=== PATIENT | female | born 1980 | race Caucasian/White ===

== ENCOUNTER 2021-07-08 19:31 | Emergency (ER) | payer BC, OTHER, SELFPAY ==
--- NOTE | 2021-07-08 19:46 | XR_ITS ---
PROCEDURE INFORMATION: Exam: XR Right Forearm Exam date and time: 07/08/2021 8:03 PM Age: 41 years old Clinical indication: Lower or forearm; Right; Patient HX: C/O pain distal forearm; Additional info: Got it caught in a gate TECHNIQUE: Imaging protocol: XR Right forearm. Views: 2 views. COMPARISON: No relevant prior studies available. FINDINGS: Bones/joints: Normal. Soft tissues: Normal. IMPRESSION: No acute findings.
[2021-07-08 20:21] VITALS: BP 155/95; PULSE 68; RESP 18; TEMP 36.6; O2SAT 99; BMI 35.7
--- NOTE | 2021-07-08 20:33 | [facility].EDUTC ---
[facility] [place] Clinical Impression: Forearm contusion Qualifiers: Encounter type: initial encounter Laterality: right Qualified Code(s): S50.11XA - Contusion of right forearm, initial encounter Disposition: Home, Self-Care Condition on Discharge: Good Instructions: DI for Contusion, How To Perform RICE (Rest, Ice, Compress, Elevate) Additional Instructions: *RICE, Rest the extremity, Ice 15-20 minutes 3-4 times daily, Compress- wear the ronnie wrap as discussed as much as possible to help reduce swelling and pain, Elevate the extremity when at rest *Ronnie wrap is for support and help control swelling, use it except in the shower. Be sure that is not to tight but not to loose either *Elevate when resting *Ibuprofen as directed on package every 6-8 hours as needed for pain an inflammation. If need something more can take Tylenol in between doses of Ibuprofen to help Immediately follow up with your family doctor for new or worsening of symptoms, or no noticeable improvement over the next 3-5 days Referrals: Provider,Referral, MD [Primary Care Provider] - As needed Time of Disposition: 20:38 Medical Decision Making - Tj Inquiry Pt receiving controlled substance: No Tj was queried for this patient: No Vital Signs: 07/08/21 20:21 Temperature 98 F Temperature Source Oral Pulse Rate [Left] 68 Respiratory Rate 18 Blood Pressure [Right Arm] 155/95 H Blood Pressure Mean [Right Arm] 115 02 Sat by Pulse Oximetry 99 - Radiology Data #1 Image(s): Forearm Image Reviewed: Yes I have reviewed radiologist's interpretation IMPRESSION: No acute findings. [facility] [place] - General Stated complaint: AO 07/08@1800 injured R arm Time Seen by Provider: 07/08/21 20:25 Mode of Arrival: Ambulatory Source of Information: Patient Limitations: No Limitations Description of Symptoms (Recalled from Triage Doc. by RN): pt states she hit her R wrist/ RFA on a gate. HEENT Symptoms (Recalled from RN notes): No Resp Symptoms (Recalled from RN notes): No Skin Symptoms (Recalled from RN notes): No MS Symptoms (Recalled from RN notes): Yes Functional Status (Recalled from RN notes): wnl - History of Present Illness Provider Complaint: Patient states that a bar on the gate fell and hit her in her right forearm States that she immediately had a raised bruised indented area on her forearm States that now she is having bruising and hurts when she moves it or touches it so she came in to get it checked - Related Data Allergies Allergy/AdvReac Type Severity Reaction Status Date / Time morphine Allergy Verified 07/08/21 20:23 Penicillins Allergy Verified 07/08/21 20:23 - Worker's Comp Is this a Worker's Comp case?: No [facility] History - Hepatitis A Screen Drug use history?: No High risk sexual behaviors?: No History of sexually transmitted infection?: No Currently employed?: No Childcare worker?: No Do you have indoor plumbing?: Yes Do you have electricity?: Yes Attestation statement:: This patient has been screened for Hepatitis A risk factors. I have reviewed the patient's past medical history: Yes ROS Obtained: Yes All systems reviewed & no additional complaints, Yes Systems reviewed as appropriate & no additional complaints - Constitutional Constitutional: Reports system reviewed and no additional complaints, except as docu - ENT Ears, Nose, Mouth, and Throat: Reports system reviewed and no additional complaints, except as docu - Cardiovascular Cardiovascular: Reports system reviewed and no additional complaints, except as docu - Respiratory Respiratory: Reports system reviewed and no additional complaints, except as docu - Allergic/Immunologic Comments: Pain and swelling in right forearm after bar on gate fell and hit her in right forearm Physical Exam - General General appearance: alert, in no apparent distress - Respiratory Respiratory exam: Present: normal lung sounds bilaterally. Absent: res
[2021-07-08 20:43] VITALS: BP 155/95; PULSE 68; RESP 18; TEMP 36.6
== END 2021-07-08 20:43 | disposition home or self-care (01) ==
PROVIDERS: Emergency Provider Nurse Practitioner
DX: S50.11XA Contusion of right forearm, initial encounter (principal); Z88.0 Allergy status to penicillin; Z88.5 Allergy status to narcotic agent; W22.8XXA Striking against or struck by other objects, initial encounter
CPT/HCPCS: 73090; 99212; G0463